=== PATIENT | male | born 1970 | race Caucasian/White ===

== ENCOUNTER 2021-04-07 10:20 | Outpatient (REF) | payer MEDICARE, MEDICAID, SELFPAY ==
--- NOTE | ~2021-04-07 | XR_ITS ---
EXAMINATION: XR CHEST CLINICAL INFORMATION: Shortness of breath COMPARISON: None TECHNIQUE: 2 views of the chest were obtained. FINDINGS: The cardiac and mediastinal contours are normal. The lungs are clear. There is no pleural effusion or pneumothorax. There are old bilateral rib fractures. There are mild degenerative changes of the spine. XR/XR chest 2V IMPRESSION: No evidence for acute disease in the chest.
== END 2021-04-07 10:21 | disposition home or self-care (01) ==
LOC: HO.XRAY 10:20
PROVIDERS: PCP Registered Nurse; Visit Provider Registered Nurse
DX: R06.02 Shortness of breath (principal)
CPT/HCPCS: 71046

== ENCOUNTER 2021-05-04 13:57 | Outpatient (REF) | payer MEDICARE, MEDICAID, SELFPAY ==
--- NOTE | ~2021-05-04 | CT_ITS ---
EXAMINATION: CT ABDOMEN AND PELVIS WITH CONTRAST CLINICAL INFORMATION: Follicular lymphoma . COMPARISON: Previous CT of the abdomen and pelvis July 2010 TECHNIQUE: Multidetector volumetric images were obtained from the superior aspect of the liver through the pubic symphysis following administration 85 mL of Omnipaque 350 intravenous contrast. Sagittal and coronal reformatted images were obtained on the technologist's workstation. Oral contrast: Yes This CT examination was performed using dose optimization techniques as appropriate, variously including the following: *Automated exposure control *Adjustment of mA and/or kV according to patient size (this includes techniques or standardized protocols for targeted exams where dose is matched to indication/reason for exam; i.e. extremities or head) *Use of iterative reconstruction technique DLP: 224 mGy-cm FINDINGS: LUNG BASES: The visualized lung bases are unremarkable. LIVER, GALLBLADDER, AND BILIARY TREE: The liver is normal in size, shape, and attenuation. No focal hepatic lesion or biliary ductal dilatation is present. The gallbladder is unremarkable with no evidence of radiopaque gallstones, gallbladder wall thickening, or obvious pericholecystic inflammatory changes. PANCREAS: Unremarkable. SPLEEN: The spleen is absent and may have been removed. ADRENAL GLANDS: Unremarkable. KIDNEYS AND URETERS: The kidneys are normal in size, shape, and attenuation. No hydronephrosis, hydroureter, or calculi seen. No perinephric stranding. There is a partially duplicated right renal collecting system. BLADDER: Unremarkable. GASTROINTESTINAL TRACT: The small and large bowel are unremarkable. The appendix is unremarkable. ABDOMINAL WALL: There are postsurgical changes from likely a right inguinal hernia repair. There is an umbilical hernia containing fat. LYMPH NODES: There is a upper abdominal and retroperitoneal lymphadenopathy. Largest lymph nodes are peripancreatic and periportal lymph nodes, for example measuring 1.5 x 2.3 cm anterior to the head of the pancreas axial image 23 series 3, and 1.6 x 2.6 cm and 1.4 x 2.9 cm in the periportal/precaval region and 1.1 x 2.7 cm in the gastrohepatic space axial image 22 series 3. There are smaller upper abdominal retroperitoneal lymph nodes. Largest lymph node measures 1.4 x 1.1 cm adjacent to the IVC axial image 48 series 3. There are small, small bowel mesentery lymph nodes. There are small retroperitoneal lymph nodes in the pelvis. There are small bilateral inguinal lymph nodes. There is no ascites. VASCULAR: Unremarkable. PELVIC VISCERA: Unremarkable. OSSEOUS STRUCTURES: There are degenerative changes of the lumbar spine and mild curvature to the right. CT/CT abdomen pelvis w con IMPRESSION: Enlarged upper abdominal and retroperitoneal lymph nodes. Lymph nodes are difficult to compare with prior exam from July 2010. Absent spleen. Fleischner guidelines were followed.
--- NOTE | ~2021-05-04 | CT_ITS ---
EXAMINATION: CT CHEST WITH CONTRAST CLINICAL INFORMATION: Follicular lymphoma COMPARISON: Previous chest x-ray April 2021 TECHNIQUE: Multidetector volumetric CT imaging of the chest was obtained after the administration of 85 mL of Omnipaque 350 intravenous contrast without immediate adverse reactions. Axial MIP volume rendering provided. Sagittal and coronal reformatted images were obtained. This CT examination was performed using dose optimization techniques as appropriate, variously including the following: *Automated exposure control *Adjustment of mA and/or kV according to patient size (this includes techniques or standardized protocols for targeted exams where dose is matched to indication/reason for exam; i.e. 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 There is a 3 mm peripheral or subpleural right upper lobe nodule adjacent to the minor fissure axial image 295 series 5. There is a 3 mm peripheral or subpleural right middle lobe nodule adjacent to the major fissure axial image 405 series 5. There is a 3 mm peripheral or subpleural lateral right lower lobe nodule axial image 405 series 5. There is a 7 mm peripheral or subpleural left lower lobe nodule axial image 491 series 5. These probably represent subpleural lymph nodes. MEDIASTINUM: There are small mediastinal and bilateral hilar lymph nodes. No enlarged hilar or mediastinal lymph nodes are seen. There is slight increased attenuation in the anterior superior mediastinum probably representing thymic tissue. This measures 1 x 2 cm axial image 166 series 5. There may be a small esophageal hernia. The mediastinum is otherwise normal. PLEURA: There is no pleural effusion. No pleural mass or thickening. AXILLA: There is bilateral axillary lymphadenopathy. Largest lymph nodes have fatty katherine and measure 1.8 x 3.6 cm on the right and 3.8 cm on the left.. Largest lymph node without fatty katherine in the deep left axillary lymph node measuring 0.8 x 1.4 cm axial image 19 series 8. No chest wall mass is seen. There are small bilateral supraclavicular lymph nodes. UPPER ABDOMEN: See abdominal and pelvic report from the same day. OSSEOUS STRUCTURES: There are degenerative changes of the spine. There are old bilateral rib fractures. CT/CT chest w con IMPRESSION: Small pulmonary nodules probably representing subpleural lymph nodes. The largest measures 7 mm in the left lower lobe. Small mediastinal and bilateral hilar lymph nodes. No enlarged hilar or mediastinal lymph nodes. Bilateral axillary lymphadenopathy. Small bilateral supraclavicular lymph nodes. Fleischner guidelines were followed.
[2021-05-04] MEDS: iohexoL 350 MG/ML 100 ML INFUS..BTL IV (14:54)
== END 2021-05-04 13:58 | disposition home or self-care (01) ==
LOC: HO.CT 13:57
PROVIDERS: PCP Registered Nurse; Visit Provider Internal Medicine
DX: Z85.72 Personal history of non-Hodgkin lymphomas (principal)
CPT/HCPCS: 71260; 74177; Q9967

== ENCOUNTER 2021-08-04 08:53 | Outpatient (REF) | payer MEDICARE, MEDICAID, SELFPAY | END 2021-08-04 08:54 | disposition home or self-care (01) | LOC: HO.PET 08:53 | PROVIDERS: Visit Provider Internal Medicine | DX: Z13.89 Encounter for screening for other disorder (principal) ==

== ENCOUNTER 2021-09-01 11:31 | Outpatient (REF) | payer MEDICARE, MEDICAID, SELFPAY | END 2021-09-01 11:32 | disposition home or self-care (01) | LOC: HO.PET 11:31 | PROVIDERS: Visit Provider Internal Medicine | DX: Z13.89 Encounter for screening for other disorder (principal) ==

== ENCOUNTER 2022-05-06 01:07 | Emergency (ER) | payer MEDICARE, MEDICAID, SELFPAY ==
--- NOTE | ~2022-05-06 | XR_ITS ---
EXAMINATION: XR CHEST CLINICAL INFORMATION: Dyspnea and edema. COMPARISON: 04/07/2021 TECHNIQUE: Frontal view of the chest was obtained. FINDINGS: Normal symmetric lung volumes. No parenchymal consolidation. No pleural effusion. No pneumothorax. Cardiomediastinal silhouette and pulmonary vascularity are within normal limits. Pulmonary venous congestion without overt edema. No acute osseous abnormalities. XR/XR chest 1V IMPRESSION: Unremarkable examination.
[2022-05-06 01:28] VITALS: BP 154/103; PULSE 71; RESP 20; TEMP 36.6; O2SAT 92; BMI 29.0
[2022-05-06 01:58] LABS: MANUAL DIFF FLAG NO
[2022-05-06 01:59] LABS: Basophils Percent Auto 0.4 % (0-2); Eosinophils Absolute Auto 0.1 X10*3/uL (0.0-0.4); Eosinophils Percent Auto 1.1 % (0-4); Hematocrit 37.5 % (42.0-52.0); Hemoglobin 12.5 g/dl (14.0-18.0); Imm Gran Abs Auto 0.02 X10*3/uL (0.00-0.03); Imm Gran Pct Auto 0.2 % (0.0-0.4); Lymphocytes Absolute Auto 4.6 X10*3/uL (1.2-4.9); Mean Corpuscular HGB Conc 33.3 g/dl (31.0-36.0); Mean Corpuscular Hemoglobin 28.2 pg (27.0-33.0); Mean Corpuscular Volume 84.7 fL (80.0-98.0); Mean Platelet Volume 9.6 fL (9.4-12.4); Monocytes Absolute Auto 0.8 X10*3/uL (0.1-1.2); Neutrophils Absolute Auto 4.8 x10*3/uL (2.0-8.3); Neutrophils Percent Auto 46.3 % (45-73); Platelet Count 279 X10*3/uL (160-400); Red Blood Count 4.43 X10*6/uL (4.60-5.80); White Blood Count 10.5 X10*3/uL (4.8-10.8)
[2022-05-06 02:24] LABS: Anion Gap 14 (12-20); Blood Urea Nitrogen 25 mg/dL (9-16); Calcium 9.3 mg/dL (8.4-10.2); Carbon Dioxide 27 mmol/L (22-29); Chloride 102 mmol/L (96-108); Creatinine Clr Calc Pharmacy 80.4; Estimated Glomerular Filt Rate 56; Glucose Random 72 mg/dL (60-115); Potassium 4.4 mmol/L (3.3-5.1); Sodium 139 mmol/L (135-145)
[2022-05-06 02:31] LABS: B Type Natriuretic Peptide 34 pg/mL (<100)
[2022-05-06 03:17] VITALS: BP 145/95; PULSE 58; RESP 17; TEMP 36.9; O2SAT 95
[2022-05-06 05:18] VITALS: BP 143/85; PULSE 54; RESP 18; TEMP 36.6; O2SAT 96
--- NOTE | 2022-05-06 05:20 | MHC.EDTECH ---
pt is sleeping it took 2 times for him to change into a glenna, the room smells like marijuana, he admitted to just smoking, vital are taken , pt is still asleep no complaints
--- NOTE | 2022-05-06 05:33 | PC.NURSE ---
pt states leaving [facility] because he has another appointment to get to . MD aware.
== END 2022-05-06 05:35 | disposition left against medical advice (07) ==
PROVIDERS: Emergency Provider Emergency Medicine
DX: R60.0 Localized edema (principal); R06.02 Shortness of breath; R07.89 Other chest pain; Z20.822 Contact with and (suspected) exposure to COVID-19; Z79.899 Other long term (current) drug therapy
CPT/HCPCS: 36415; 71045; 80048; 83880; 85025; 99283